=== PATIENT | female | born 1985 | race Caucasian/White ===

== ENCOUNTER 2023-08-29 07:38 | Outpatient (CLI) | payer OTHER, SELFPAY ==
--- NOTE | ~2023-08-29 | DEXA_ITS ---
Bone Density Report Name: ARNULFO DE LA FUENTE Age: 38 Sex: Female Ethnicity: White Date of : 1985 Indication: height loss; Referring Provider: CHRISTEN WILCOX Study: Bone densitometry was performed. Exam Date: August 29, 2023 Accession number: [id number] Bone Density: Region BMD T-score Z-score Classification AP Spine(L1-L4) 0.904 -1.3 -1.1 Osteopenia Femoral Neck (Left) 0.729 -1.1 -0.8 Osteopenia Total Hip (Left) 0.817 -1.0 -0.9 Normal Femoral Neck (Right) 0.746 -0.9 -0.6 Normal Total Hip (Right) 0.827 -0.9 -0.8 Normal Total Hip Mean 0.822 -1.0 -0.9 Normal World Health Organization criteria for BMD impression classify patients as: Normal (T-score at or above -1.0), Osteopenia (T-score between -1.0 and -2.5), or Osteoporosis (T-score at or below -2.5). 10-year Fracture Risk: FRAX not reported because: Premenopausal woman Clinical Information Provided by Patient: Has used the following medications: Calcium Patient maximum height was 66 No regular weight bearing exercise Drinks caffeinated beverages Onset of menses at age 13 Premenopausal Number of children 1 Impression: The patient's bone mass is within expected range for age, gender and ethnicity. Discussion: BONE DENSITY IS WITHIN EXPECTED LIMITS FOR AGE, SEX AND RACE. Bone density is within expected limits for age, sex and race at all sites measured. The patient should follow a healthful lifestyle (good nutrition with adequate calcium and vitamin D, and appropriate weight-bearing exercise). Follow-Up: Consider repeating this study in 2 to 3 years to reassess this patient's status, or sooner if there is some new clinical indication. Reported by: [facility] on 08/29/2023 7:59:00 AM. Reviewed, dictated and finalized at location [facility]
== END 2023-08-29 07:39 | disposition home or self-care (01) ==
LOC: ANHIMG 07:41
PROVIDERS: PCP Advanced Practice Midwife; Visit Provider Advanced Practice Midwife
DX: Z79.3 Long term (current) use of hormonal contraceptives (principal); M85.88 Other specified disorders of bone density and structure, other site; M85.852 Other specified disorders of bone density and structure, left thigh
CPT/HCPCS: 77080

== ENCOUNTER 2024-02-25 11:52 | Emergency (ER) | payer OTHER, SELFPAY ==
[2024-02-25 11:59] VITALS: BP 122/66; PULSE 100; RESP 16; TEMP 36.8; O2SAT 99
--- NOTE | 2024-02-25 12:33 | ED.DENTAL ---
HPI - Dental/Oral General Chief complaint: Dental/Oral Stated complaint: Abscess/Dizziness Time Seen by Provider: 02/25/24 12:34 Mode of arrival: ambulatory Limitations: no limitations History of Present Illness HPI Narrative: 39-year-old female presents with concern for left upper dental pain. She reports she has bad teeth in that area. Reports she noticed small abscess on her gums last night. She reports that this morning she woke up in her whole cheek was swollen and painful. She reports it is causing her to have ear pain. She denies fever, headache, trouble swallowing. MD Complaint: tooth pain Related Data Allergies Allergy/AdvReac Type Severity Reaction Status Date / Time No Known Allergies Allergy Verified 02/25/24 12:30 Review of Systems Review of Systems: CONSTITUTIONAL: Denies malaise, chills, sweats, or fever. EYES: Denies visual changes ENT: Denies rhinorrhea, congestion, sinus pain, otalgia or sore throat. Reports left upper dental pain and left cheek swelling CARDIOVASCULAR: Denies chest pain, palpitations RESPIRATORY: Denies cough or dyspnea. SKIN: Denies rash or itching. MUSCULOSKELETAL: Denies myalgia. NEUROLOGIC: Denies numbness, weakness, or headache. All systems reviewed & are unremarkable except as noted in HPI and below PMFSH Comments At time of signature, agree with nursing past medical, surgical, social and family history. There is no relevant family history pertinent to the presenting complaint Exam Narrative: GENERAL: Well-appearing, well-nourished, and in no acute distress. HEAD: Normocephalic, atraumatic. EYES: PERRLA, sclera clear ENT: Nares clear, turbinates pink, no rhinorrhea or epistaxis. Mucous membranes moist. TM pearly mclain with sharp light reflex bilaterally; no tragal tenderness. Oropharynx without erythema or lesions. Tonsils not enlarged and without exudate. Missing teeth, broken teeth, caries. Left cheek swelling and tenderness noted NECK: Supple. No lymphadenopathy. CHEST: No respiratory distress. Speaks in full sentences. HEART: Regular rate and rhythm. SKIN: Warm, dry, no visible rash. NEURO: Alert and oriented x3. PSYCH: Normal mood and affect Course Course Emergency Course: Patient is aware of diagnosis, understands and agrees to treatment plan. Anticipatory guidance given. Patient agrees to follow-up as directed and is aware of reasons to seek care at the emergency department. Portions of this record may have been created with voice recognition software Level of Care: Express Care Visit Vital Signs Vital signs: Vital Signs Temperature 98.3 F 02/25/24 11:59 Pulse Rate 100 02/25/24 11:59 Respiratory Rate 16 02/25/24 11:59 Blood Pressure 122/66 02/25/24 11:59 Pulse Oximetry 99 02/25/24 11:59 Temperature 98.3 F 02/25/24 11:59 Pulse Rate 100 02/25/24 11:59 Respiratory Rate 16 02/25/24 11:59 Blood Pressure 122/66 02/25/24 11:59 Pulse Oximetry 99 02/25/24 11:59 Reviewed. MDM - Dental/Oral MDM Narrative Medical decision making narrative: I evaluated this in the [facility]. History is obtained from patient who is an independent historian and physical exam was performed.? Available medical records were reviewed. ? Exam findings and relevant testing show no acute concerns or changes; patient is non-toxic appearing and is in no distress. Patients pain and complaint coupled with physical findings are consistant with dentalgia. There are no focal signs of space occupying lesions that are compromising to the airway; no dysphagia, odynophagia, dysphonia, or dyspnea. No uvular deviation or soft palate edema. Patient is non-toxic appearing. The floor of the mouth is soft with no signs of Lupillo's Angina; no induration below mandible, no neck pain. Patient is without trismus or drooling and able to swallow secretions. Patient is felt appropriate for discharge home with dental follow up. ? Differential diagnosis an
== END 2024-02-25 12:43 | disposition home or self-care (01) ==
PROVIDERS: Emergency Provider Nurse Practitioner
DX: K04.7 Periapical abscess without sinus (principal)
CPT/HCPCS: 99213; G0463

== ENCOUNTER 2024-06-03 13:54 | Emergency (ER) | payer OTHER, SELFPAY ==
--- NOTE | ~2024-06-03 | XR_ITS ---
EXAM: XR ankle LT min 3V DATE: 06/03/2024 15:27 HISTORY: injured yesterday. pain lat ankle and plantar heel . COMPARISON: None available. FINDINGS: Normal mineralization. No lytic or blastic lesion. Achilles enthesopathy. Fractured planta r enthesophyte. Small, subtle curvilinear ossific fragment over the lateral talar process. No erosion or periosteal change. Soft tissues within normal limits. IMPRESSION: Subtle ossific fragment over the lateral talar process likely representing a small minima lly displaced fracture. Minimally displaced plantar enthesophyte fracture. Reviewed, dictated and finalized at location [facility] IMPRESSION: Subtle ossific fragment over the lateral talar process likely repre senting a small minimally displaced fracture. Minimally displaced plantar enthe sophyte fracture.
[2024-06-03 14:31] VITALS: BP 138/88; PULSE 86; RESP 18; TEMP 36.9; O2SAT 100
--- NOTE | 2024-06-03 15:19 | ED_ITS ---
HPI - Extremity Injury (Lower) General Chief Complaint: Extremity Injury, Lower Stated Complaint: Injured Left Foot Time Seen by Provider: 06/03/24 15:15 Source: patient and RN notes reviewed Mode of arrival: ambulatory Limitations: no limitations History of Present Illness HPI Narrative: Patient presents today complaining of a left foot injury. Yesterday morning at 5:00 a.m. she stopped on the floor at home due to loud neighbor's below her and injured her heel. Pain increases with weight-bearing. Currently rates her pain 01/31 and has been taking ibuprofen with some mild relief. Denies numbness or tingling. Related Data Home Medications Medication Instructions Recorded Confirmed No Home Medications 06/03/24 06/03/24 Allergies Allergy/AdvReac Type Severity Reaction Status Date / Time No Known Allergies Allergy Verified 06/03/24 14:39 Review of Systems Review of Systems: CONSTITUTIONAL: Denies body aches, fever, chills, or sweats. EYES: Denies visual changes, redness, or discharge. ENT: Denies rhinorrhea, congestion, sore throat, or otalgia. CARDIOVASCULAR: Denies chest pain, palpitations, or edema. RESPIRATORY: Denies cough or dyspnea. GASTROINTESTINAL: Denies abdominal pain, nausea, vomiting, or diarrhea. GENITOURINARY: Denies dysuria or hematuria. SKIN: Denies rash, itching, or wounds. MUSCULOSKELETAL: Denies back pain, or myalgia.+ left foot and ankle injury NEUROLOGIC: Denies headache, numbness, tingling, or weakness. PSYCH: Denies depression or anxiety. PMFSH Comments At time of signature, I have reviewed and agree with nursing past medical, surgical, social and family history unless otherwise noted. Please see nursing chart for further information. There is no relevant family history pertinent to the presenting complaint Exam Narrative: GENERAL: Well-appearing, well-nourished, and in no acute distress. HEAD: Normocephalic, atraumatic. EYES: EOMI. No redness or drainage. Conjunctivae normal. ENT: Mucous membranes pink and moist. NECK: Normal AROM. CHEST: No respiratory distress. EXTREMITIES: Left foot and ankle: Tenderness and mild swelling to the lateral ankle. Pain to the plantar aspect of the heel with mild tenderness to palpation. No edema of the heel. Distal sensation intact. Capillary refill normal. Pedal pulse normal. Full range of motion of the ankle without pain. SKIN: Warm, dry, no rash. Capillary refill normal. Normal skin turgor. NEURO: No focal deficits. Alert and oriented x3. Gait steady. PSYCH: Normal affect. No signs of depression or anxiety. Course Course Level of Care: Express Care Visit Vital Signs Vital signs: Vital Signs Temperature 98.5 F 06/03/24 14:31 Pulse Rate 86 06/03/24 14:31 Respiratory Rate 18 06/03/24 14:31 Blood Pressure 138/88 06/03/24 14:31 Pulse Oximetry 100 06/03/24 14:31 Oxygen Delivery Room Air 06/03/24 14:31 Temperature 98.5 F 06/03/24 14:31 Pulse Rate 86 06/03/24 14:31 Respiratory Rate 18 06/03/24 14:31 Blood Pressure 138/88 06/03/24 14:31 Pulse Oximetry 100 06/03/24 14:31 Oxygen Delivery Room Air 06/03/24 14:31 Reviewed Procedures Orthopedic Splinting/Casting Injury #1: Splinting/Casting Date: 06/03/24 Splinting/Casting Time: 16:30 Side: left OCL: short leg Pre-Procedure Neuro Vascular Exam: normal Post-Procedure Neuro Vascular Exam: normal Other Orthopedic Equipment: crutches Additional Comments: Placed by tech MDM - Extremity Injury (Lower) MDM Narrative Medical decision making narrative: X-ray shows fracture of the talar dome. Patient placed in short leg posterior splint and crutches. Orthopedic follow-up. Anticipatory guidance given. Differential Diagnosis Differential diagnosis: Likely ankle sprain and strain, ankle fracture and other (Calcaneus fracture) Imaging Data Radiologist's impression: ITS Impressions Ankle X-Ray 06/03/24 16:02 IMPRESSION: Subtle ossific fragment over the lateral talar process likely representing a small minimally displaced fracture. Minimally displaced plantar enthesophyte fracture. Critical Care Time Critical Care Time Critical Care Time: No Discharge Plan Discharge Clinical Impression: Nondisplaced dome fracture of left talus Qualifiers: Encounter type: initial encounter Fracture type: closed Qualified Code(s): S92.145A - Nondisplaced dome fracture of left talus, initial encounter for closed fracture Patient Disposition: Home, Self-Care Condition: Stable Instructions: Ankle Fracture (DC) Additional Instructions: X-ray shows fracture in your ankle. You have been placed in a temporary splint. Please keep this dry and intact until follow-up with orthopedics. Use crutches. Elevate and ice your ankle. Take Tylenol or ibuprofen for pain. Your blood pressure was elevated above 120/80 today at Urgent Care. This puts you above the threshold for follow up. Please schedule a followup visit with your personal physician as soon as possible, for further evaluation and treatment. Even blood pressure exceeding 120/80 may indicate pre-hypertension. Prescriptions: No Action No Home Medications Follow-up/Referrals: Morgan Arias MD [Physician] - [place],Valdemar Waters MD [Primary Care Provider] - Stand Alone Forms: Work/School Release IP Time of Disposition: 16:29
== END 2024-06-03 16:45 | disposition home or self-care (01) ==
PROVIDERS: Emergency Provider Nurse Practitioner; PCP Family Medicine
DX: S92.145A Nondisplaced dome fracture of left talus, initial encounter for closed fracture (principal); W22.09XA Striking against other stationary object, initial encounter
CPT/HCPCS: 29515; 73610; 99214; G0463

== ENCOUNTER 2025-01-07 15:38 | Emergency (ER) | payer OTHER, SELFPAY ==
--- NOTE | 2025-01-07 15:40 | ED.DENTAL ---
HPI - Dental/Oral General Chief complaint: Dental/Oral Stated complaint: DENTAL PAIN/FACIAL SWELLING/DIZZY Time Seen by Provider: 01/07/25 16:06 Source: patient, RN notes reviewed and old records reviewed Mode of arrival: ambulatory Limitations: no limitations History of Present Illness HPI Narrative: 39-year-old female presents to the [facility] with right upper dental pain and swelling since yesterday. States that the pain gets so bad she feels dizzy. Has poor dentition. States that she needs to have all her teeth pulled. Unable to find a dentist. Treatment prior to arrival: none Related Data Allergies Allergy/AdvReac Type Severity Reaction Status Date / Time No Known Allergies Allergy Verified 01/07/25 15:47 Review of Systems Review of Systems: All systems reviewed & are unremarkable except as noted in HPI and below Constitutional: Constitutional: Reports no additional constitutional complaints ENT: Reports as per HPI and Reports dental pain Cardiovascular: Cardiovascular: Reports no additional cardiovascular complaints, Denies chest pain and Denies dyspnea Respiratory: Respiratory: Reports no additional respiratory complaints, Denies chest congestion, Denies cough and Denies dyspnea Musculoskeletal: Musculoskeletal: Reports no additional musculoskeletal complaints Integumentary/Breasts: Skin/Breast: Reports system reviewed and no additional complaints, except as docu PMFSH Surgical History Surgical History History of delivery Social History Social History Smoking status: Never smoker Second hand tobacco smoke exposure: Yes Alcohol intake: never Substance use: never Do You Feel Safe in your Home?: Yes Lack of Transportation: No Lack of Food: Never True Current Housing: I Have Housing Concerned About Future Housing: No Difficulty Paying Gas/Electric Bills: No Difficulty Paying for Meds: YES Currently Unemployed: No Education: High School Diploma/GED Difficulty w/ Childcare or Family Care: No Comments At the time of my signature, I reviewed and agree with the nursing past medical, surgical, social, and family history. There is no relevant family history pertinent to the patient complaint. Exam Const: General: cooperative, healthy appearing, comfortable, no acute distress, well developed, alert and well nourished Nutritional Appearance: well nourished Orientation/consciousness: patient oriented x3 Limitations: no limitations HENMT: Head: normal to inspection Ears: hearing grossly normal bilaterally, external ears normal, TM's normal bilaterally, EAC's normal, mastoids normal and no periauricular adenopathy Teeth and gingiva: gingiva abnormal edematous and diffusely erythematous and poor dentition Teeth image:  1. Gingival swelling, with increased erythema. Tender to palpation Decayed teeth Throat: posterior oropharynx normal, uvula midline and no uvular edema Eyes: General: appearance normal, both eyes and all related structures Alignment and Position: alignment normal Neck: Neck: normal visual inspection, full ROM, no lymphadenopathy and no meningeal signs Chest: Chest palpation & inspection: normal inspection of the chest Resp: Effort & Inspection: normal respiratory effort and able to speak in complete sentences Cardio: Rate: regular rate Skin: General skin exam: normal color and no rashes or lesions noted Neuro: General: patient oriented x3, gait normal, moves all extremities and no meningeal signs Cognition (Neuro): normal cognition Speech: normal speech Gait exam (Neuro): Normal gait present Extrem: General: normal to inspection, full ROM, capillary refill normal and normal gait Psych: Appearance: grossly normal and well kempt Mental Status: mental status grossly normal Speech and movement: Normal speech and movement present and Clear speech present Affect: normal affect Attitude: cooperative Course Course Level of Care: Express Care Visit Vital Signs Vital signs: Vital Signs Temperature 97.8 F 01/07/25 15:45 Pulse Rate 01/07/25 15:45 Respiratory Rate 01/07/25 15:45 Blood Pressure 147/75 H 01/07/25 15:45 Pulse Oximetry 100 01/07/25 15:45 Oxygen Delivery Room Air 01/07/25 15:45 Temperature 97.8 F 01/07/25 15:45 Pulse Rate 71 01/07/25 15:45 Respiratory Rate 01/07/25 15:45 Blood Pressure 147/75 H 01/07/25 15:45 Pulse Oximetry 100 01/07/25 15:45 Oxygen Delivery Room Air 01/07/25 15:45 Reviewed MDM - Dental/Oral MDM Narrative Medical decision making narrative: Patient sitting in exam room. Patient is nontoxic, vitals stable. Patient with gingival edema, erythema. Patient appropriate for outpatient treatment with close follow-up, list of providers given. Discharge instructions reviewed with patient, as well as provided in writing per nursing staff. The instructions also include specific and strict return/GO TO THE ER as well as f/u information. All questions have been answered, and the patient deny any further questions with discharge and discharge plan. Some parts of this dictation were generated by voice recognition software and may contain typographical and/or grammatical inaccuracies. Differential Diagnosis Differential diagnosis: Likely gingival abscess, dental caries, toothache, dental abscess and fracture of tooth Critical Care Time Critical Care Time Critical Care Time: No Discharge Plan Discharge Clinical Impression: Abscess of upper gingiva Patient Disposition: Home Condition: Stable Instructions: Antibiotic Form, Dental Abscess (ED) Additional Instructions: Finish the entire course of antibiotics Good oral hygiene is extremely important. Brushing twice a day and using a good mouthwash. Salt water gargles during the day can also help reduce inflammation. Apply ice to face to help with pain. Take Tylenol alternating with Motrin as needed for pain. You can alternate every 4 hours You need to follow-up with a dental provider as soon as possible for further evaluation and treatment. A list of dental providers has been given to you Follow up with a Primary Care Provider (PCP) about medical needs. A PCP can help keep you healthy by preventive medicine and screening. Go to the ER for New or worsening symptoms. Patient Language: Trinidadian Prescriptions: New penicillin V potassium 500 mg tablet 500 mg PO QID 7 Days Qty: 28 0RF Follow-up/Referrals: Christiano,Ritu Mercedes APRN [Primary Care Provider] - 1 Week ([facility] follow up blood pressure check, 147/75) Stand Alone Forms: Work/School Release IP Time of Disposition: 16:12
[2025-01-07 15:45] VITALS: BP 147/75; PULSE 71; RESP 16; TEMP 36.6; O2SAT 100
== END 2025-01-07 16:24 | disposition home or self-care (01) ==
PROVIDERS: Emergency Provider Nurse Practitioner; PCP Nurse Practitioner
DX: K05.20 Aggressive periodontitis, unspecified (principal)
CPT/HCPCS: 99213; G0463